=== PATIENT | male | born 1985 | race Caucasian/White ===

== ENCOUNTER 2021-03-14 21:56 | Emergency (ER) | payer BC, OTHER ==
[2021-03-14 22:03] VITALS: BP 152/98; PULSE 73; TEMP 98.3; BMI 24.7
[2021-03-14 23:58] LABS: BASO % 0.8 % (0-2.0); EOS % 5.6 % (0-4.5); HEMATOCRIT 40.3 % (35.4-49); HEMOGLOBIN 13.8 GM/dL (11.7-16.9); LYMPH % 41.2 % (8-40); MCHC 34.2 g/dl (32.0-35.9); MEAN CELL VOLUME 90.7 fl (80-96); MEAN PLT VOLUME 7.1 fl (7.5-11.1); MONO % 9.2 % (3.8-10.2); NEUT % 43.2 % (42.8-82.8); PLATELET COUNT 288 10^3/uL (134-434); RBC 4.44 M/mm3 (4.00-5.60); RDW 12.6 % (11.9-15.9); WHITE BLOOD COUNT 6.1 K/mm3 (4.0-10.0)
[2021-03-15 00:19] LABS: BLOOD UREA NITROGEN 21.3 mg/dL (7-18)
[2021-03-15 00:22] LABS: CREATININE 0.9 mg/dL (0.55-1.3)
[2021-03-15 00:23] LABS: BILIRUBIN,TOTAL 0.3 mg/dL (0.2-1); TOT PROT 7.1 g/dl (6.4-8.2)
== END 2021-03-15 01:19 | disposition home or self-care (01) ==
LOC: JER 21:56
DX: R06.02 Shortness of breath (principal); R50.9 Fever, unspecified; Z11.52 Encounter for screening for COVID-19
CPT/HCPCS: 36415; 71046-TC-FY; 80053; 85025; 93005; 93010; 99285-25; C9803; U0003; U0005